=== PATIENT | female | born 1950 | race Caucasian/White ===

== ENCOUNTER 2024-03-08 14:57 | Emergency (ER) | payer MEDICARE, OTHER ==
[~2024-03-08] VITALS: Ht 149.9 cm; Wt 40.9 kg
[2024-03-08 15:12] VITALS: BP 150/97; PULSE 75; RESP 16; TEMP 98; O2SAT 98
[2024-03-08] MEDS: FLUORESCEIN SODIUM 1 MG STRIP OD ONE (15:58)
[2024-03-08] MEDS: PROPARACAINE HCL 0.5% 15 ML OPHTHALMIC SOLUTION OD ONE (15:58)
== END 2024-03-08 17:39 | disposition left against medical advice (07) ==
LOC: EMS 15:08
DX: H54.61 Unqualified visual loss, right eye, normal vision left eye (principal)
CPT/HCPCS: 99283